=== PATIENT | male | born 1950 | race Caucasian/White ===

== ENCOUNTER 2017-05-06 10:34 | Emergency (ER) | payer MEDICARE, OTHER ==
[~2017-05-06] VITALS: Ht 165.1 cm; Wt 63.6 kg
[~2017-05-06 10:34] MED LIST: ASPI-1182 PO; CARV12 PO; CIME400T PO; DIAZ5 PO; DIPH25 PO; DOCU250C91 PO; LISI-662 PO; METO50 PO; OMEP20 PO; ONDA4 PO; QUET25TA PO; THIA100 PO; TRIL4 PO
[2017-05-06] MEDS ORDERED: ONDANSETRON HCL 4 MG/2 ML VIAL IVP ONE (10:45)
[2017-05-06] MEDS ORDERED: MORPHINE SULFATE 4 MG/ML SYRINGE IVP ONE (10:45)
[2017-05-06 11:01] LABS: EOSINOPHILS % (AUTO) 3.8 % (1.0-6.0); HEMATOCRIT 36.1 % (41-53); HEMOGLOBIN 12.1 g/dL (13.5-17.5); LYMPHOCYTES # (AUTO) 1.7 K/uL (1.0-4.8); LYMPHOCYTES % (AUTO) 21.7 % (22.0-44.0); MEAN CORPUSCULAR HEMOGLOBIN 29.3 pg (26.0-34.0); MEAN CORPUSCULAR HGB CONC 33.4 G/dL (31.0-37.0); MEAN CORPUSCULAR VOLUME 88 fL (80-100); MONOCYTES # (AUTO) 0.8 K/uL (0.1-1.0); MONOCYTES % (AUTO) 10.5 % (2.0-9.0); NEUTROPHILS # (AUTO) 4.9 K/uL (1.8-7.7); PLATELET COUNT (AUTO) 179 K/uL (150-450); RED BLOOD CELL COUNT(AUTO) 4.11 MIL/uL (4.50-5.90); RED CELL DISTRIBUTION WIDTH 17.6 % (11.5-14.5)
[2017-05-06 11:11] LABS: ANION GAP 2 mmol/L (8-16); CALCIUM, TOTAL 8.9 mg/dL (8.8-10.5); CARBON DIOXIDE 34 mmol/L (22-29); CHLORIDE 104 mmol/L (98-107); CREATININE 0.99 mg/dL (0.60-1.30); GLOMERULAR FILTR. RATE CALC > 60 mL/min (>60); GLUCOSE,RANDOM 111 mg/dL (70-110); POTASSIUM 4.5 mmol/L (3.5-5.1); SODIUM SERUM 140 mmol/L (136-145); UREA NITROGEN, BLOOD 14 mg/dL (7-18)
[2017-05-06 11:17] LABS: ALANINE AMINOTRANSFERASE 31 U/L (12-78); ALKALINE PHOSPHATASE 124 U/L (46-116); ASPARTATE AMINOTRANSFERASE 135 U/L (15-37); BILIRUBIN,TOTAL 0.6 mg/dL (0.1-1.0); TOTAL PROTEIN, SERUM 7.9 g/dL (6.4-8.2)
[2017-05-06] MEDS ORDERED: PANT40TA25 PO (11:39)
[2017-05-06] MEDS ORDERED: CARB1TAB35 PO (11:39)
[2017-05-06] MEDS ORDERED: PERCT10 PO (11:39)
[2017-05-06] MEDS ORDERED: VITAD1000 PO (11:39)
[2017-05-06] MEDS ORDERED: METO25 PO (11:39)
[2017-05-06] MEDS ORDERED: ROPI0.255 PO (11:39)
[2017-05-06] MEDS ORDERED: FOLI1 PO (11:39)
[2017-05-06] MEDS ORDERED: LISI-660 PO (11:39)
[2017-05-06] MEDS ORDERED: IPRA3AMP4 IH (11:39)
[2017-05-06] MEDS ORDERED: KDUR20 PO (11:39)
[2017-05-06] MEDS ORDERED: OXYC20 PO (11:39)
[2017-05-06] MEDS ORDERED: QUET150T3 PO (11:39)
[2017-05-06] MEDS ORDERED: ALPR0.5T8 PO (11:39)
[2017-05-06] MEDS ORDERED: FERR-89 PO (11:39)
[2017-05-06] MEDS ORDERED: NICO-800 TD (11:39)
[2017-05-06] MEDS ORDERED: SERT50TA12 PO (11:39)
[2017-05-06] MEDS ORDERED: DILT240C60 PO (11:39)
[2017-05-06] MEDS ORDERED: TRIL4 PO (11:39)
[2017-05-06] MEDS ORDERED: NICO-703 TD (11:39)
[2017-05-06] MEDS ORDERED: EDOX60TA PO (11:39)
[2017-05-06] MEDS ORDERED: IOVERSOL 320 MG/ML 100 ML VIAL ONE (11:52)
[2017-05-06] MEDS ORDERED: KETOROLAC TROMETHAMINE 30 MG/ML VIAL IVP ONE (12:00)
[2017-05-06] MEDS ORDERED: AZITHROMYCIN 500 MG/NS 250 ML IV ONE (13:30)
[2017-05-06] MEDS ORDERED: CefTRIAXone SODIUM 1 GM in DEXTROSE 5%-WATER 10 ML IV ONE (13:30)
[2017-05-06 14:37] LABS: INFLUENZA TYPE A NEGATIVE FOR TYPE A (NEGATIVE); INFLUENZA TYPE B NEGATIVE FOR TYPE B (NEGATIVE)
[2017-05-06] MEDS ORDERED: ALBUTEROL SULFATE HFA 90 MCG/PUFF 8 GM INHALER IH ONE (15:15)
[2017-05-06 15:32] VITALS: BP 108/64
== END 2017-05-06 16:30 | disposition home or self-care (01) ==
LOC: EMS 10:36
DX: J18.9 Pneumonia, unspecified organism (principal); M54.9 Dorsalgia, unspecified; G89.29 Other chronic pain; J45.909 Unspecified asthma, uncomplicated; I10 Essential (primary) hypertension; F12.90 Cannabis use, unspecified, uncomplicated; F17.210 Nicotine dependence, cigarettes, uncomplicated
CPT/HCPCS: 36415; 71260; 72125; 80053; 83880; 84484; 85025; 87040; 87804; 93005; 94640; 96365; 96375; 99285; 99406; J0696; J1885; J2405; J7060; Q9967; J2270; J3535

== ENCOUNTER → 2017-12-03 | Outpatient (CLI) | payer OTHER ==
[~2017-12-03] MED LIST changes: +ALPR0.5T8 PO; -ASPI-1182 PO; +CARB1TAB35 PO; -CARV12 PO; -CIME400T PO; -DIAZ5 PO; +DILT240C60 PO; -DIPH25 PO; +EDOX60TA PO; +FERR-89 PO; +FOLI1 PO; +IPRA3AMP24 IH; +KDUR20 PO; +LISI-660 PO; -LISI-662 PO; +METO25 PO; -METO50 PO; +NICO-703 TD; +NICO-800 TD; -OMEP20 PO; -ONDA4 PO; +OXYC20 PO; +PANT40TA25 PO; +PERCT10 PO; +QUET150T4 PO; -QUET25TA PO; +ROPI0.257 PO; +SERT50TA12 PO; -THIA100 PO; +VITAD1000 PO
== END | disposition home or self-care (01) ==
LOC: RADPV 08:58
PROVIDERS: ATTEND Internal Medicine Critical Care Medicine
DX: R47.02 Dysphasia (principal)
CPT/HCPCS: 74230; 92611